=== PATIENT | male | born 1975 | race Caucasian/White ===

== ENCOUNTER 2016-10-14 12:14 | Inpatient (IN) | payer BC, MEDICAID | END 2016-10-26 14:00 | DRG 337 | DX: K56.5 Intestinal adhesions [bands] with obstruction (postinfection) (principal); N31.9 Neuromuscular dysfunction of bladder, unspecified; I10 Essential (primary) hypertension; K56.7 Ileus, unspecified; R04.0 Epistaxis; Q05.9 Spina bifida, unspecified; R73.9 Hyperglycemia, unspecified; E87.6 Hypokalemia ==